=== PATIENT | female | born 1955 | race Caucasian/White ===

== ENCOUNTER 2016-11-22 01:26 | Emergency (ER) | payer MEDICARE ==
[~2016-11-22] VITALS: Ht 160 cm; Wt 102.0 kg
[~2016-11-22 01:26] MED LIST: ACET-141 PO; ALPR1TAB7 PO; AMO500 PO; BEN25 PO; BENA20TA48 PO; BENZ1TAB7 PO; DOCU-159 PO; DULO60CA6 PO; IBUP400T22 PO; KENC1 TOP; METO-448 PO; NAPR-688 PO; NYST15CR28 TOP; OXYC-279 PO; PANT40TA4 PO; PREG50CA PO; PROC10TA10 PO; ROPI1TAB PO; ROPI4TAB4 PO; TIZA4TAB PO; TOPI25CA2 PO; TRAZ50TA18 PO; ZOLP5TAB PO
[2016-11-22 01:35] VITALS: Ht 160 cm; Wt 102.0 kg
[2016-11-22] MEDS ORDERED: ACET1TAB40 PO (04:52)
[2016-11-22] MEDS ORDERED: traMADol 50 MG TAB PO ONE (05:00)
--- NOTE | 2016-11-22 05:00 | ERD ---
ER Documentation Chief Complaint Date/Time DATE: 11/22/16 TIME: 04:57 Chief Complaint toothache, tooth extraction 2 days ago HPI This patient is a 61-year-old female with past medical history of hypertension and dental extraction 2 days ago presenting to the emergency department for dental pain ongoing for the past 2 days. The patient states she got a prescription for 8 Tylenol 3 sincerity use all of them due to her pain. The patient is requesting a few more Tylenol threes to get through to her dental appointment in 1 day. Patient denies fevers, chills, discharge from the extraction site, or other symptoms at this time. ROS All systems reviewed and are negative except as per history of present illness. Medications Home Meds Active Scripts Acetaminophen with Codeine (Acetaminophen-Cod #3 Tablet) 1 Each Tablet, 1 TAB PO Q6H Y for PAIN, #3 TAB Prov:DIMITRY CUBA PA-C 11/22/16 Acetaminophen with Codeine (Acetaminophen-Cod #3 Tablet) 1 Each Tablet, 1 TAB PO Q6H Y for PAIN, #7 TAB Prov:DIMITRY CUBA PA-C 11/22/16 Amoxicillin* (Amoxicillin*) 500 Mg Cap, 500 MG PO TID for 7 Days, CAP Prov:RAJNI BARRIOS DO 07/31/16 Oxycodone HCl/Acetaminophen (Percocet 5-325 mg Tablet) 1 Each Tablet, 1 EACH PO Q6, #10 TAB Prov:RAJNI BARRIOS DO 07/31/16 Naproxen* (Naproxen*) 500 Mg Tablet, 500 MG PO BID Y for PAIN, #20 TAB Prov:RAJNI BARRIOS DO 07/31/16 Zolpidem Tartrate (Ambien Gigi) 5 Mg Tab, 10 MG PO HS Y for INSOMNIA for 60 Days Prov:ANDREA CHAMBERLAIN MD 03/29/15 Trazodone Hcl* (Desyrel*) 50 Mg Tab, 50 MG PO HS Y for SLEEP for 60 Days, TAB Prov:ANDREA CHAMBERLAIN MD 03/29/15 Pantoprazole (Protonix) 40 Mg Tabec, 40 MG PO DAILY@06 for 30 Days Prov:ANDREA CHAMBERLAIN MD 03/29/15 Diphenhydramine Hcl* (Benadryl*) 25 Mg Cap, 25 MG PO HS for 60 Days, CAP Prov:ANDREA CHAMBERLAIN MD 03/29/15 Reported Medications Pregabalin* (Lyrica*) 50 Mg Capsule, 50 MG PO BID, CAP 03/27/15 Duloxetine Hcl* (Cymbalta*) 60 Mg Capsule.dr, 60 MG PO DAILY, CAP 03/27/15 Topiramate* (Topiramate*) 25 Mg Cap.sprink, 25 MG PO BID, CAP 03/27/15 Docusate Sodium* (Docusate Sodium*) 100 Mg Capsule, 100 MG PO BID, CAP 03/27/15 Prochlorperazine* (Prochlorperazine*) 10 Mg Tablet, 10 MG PO Q12 Y for NAUSEA, TAB 03/27/15 Ibuprofen* (Ibuprofen*) 400 Mg Tablet, 400 MG PO Q6H Y for PAIN, TAB 03/27/15 Tizanidine Hcl* (Tizanidine Hcl*) 4 Mg Tablet, 4 MG PO QID, TAB 07/03/14 Alprazolam* (Alprazolam*) 1 Mg Tablet, 1 MG PO BID, TAB 07/03/14 Nystatin* (Nystatin*) 15 Gm Cr, 1 APPLIC TOP BID, TUB 07/03/14 Triamcinolone Acetonide* (Kenalog*) 0.1%-15GM Cr, 1 APPLIC TOP DAILY, EA 07/03/14 Ropinirole Hcl* (Ropinirole Hcl*) 4 Mg Tablet, 4 MG PO QHS, TAB 07/03/14 Ropinirole Hcl* (Ropinirole Hcl*) 1 Mg Tablet, 1 MG PO HS, TAB 07/03/14 Benztropine Mesylate* (Benztropine Mesylate*) 1 Mg Tablet, 1 MG PO QHS, TAB 07/03/14 Pantoprazole* (Pantoprazole*) 40 Mg Tablet.dr, 40 MG PO DAILY, TAB 07/03/14 Metoprolol Tartrate* (Lopressor*) 25 Mg Tab, 25 MG PO BID, TAB 07/03/14 Benazepril Hcl* (Benazepril Hcl*) 20 Mg Tablet, 20 MG PO DAILY, TAB 07/03/14 Acetaminophen* (Acetaminophen*) 500 MG Extra Strength Tablet, 1000 MG PO TID Y for PAIN, TAB 07/03/14 Allergies Allergies: Coded Allergies: hydrocodone (Verified Allergy, Severe, sob, 07/31/16) aspirin (Verified Allergy, Unknown, DELUSIONAL, 07/31/16) PMhx/Soc History of Surgery: Yes (cholecystectomy, tonsillectomy) Anesthesia Reaction: Yes (VOMITING) Hx Neurological Disorder: Yes (PER PT. STROKE ) Hx Respiratory Disorders: No Hx Cardiac Disorders: Yes (mitral valve prolapse) Hx Psychiatric Problems: Yes (BIPOLAR DISORDER, SCHIZOAF VS BIPOLAR II) Hx Miscellaneous Medical Probl: Yes (ANXIETY,DEPRESSION,CHRONIC FATIGUE SYNDROME) Hx Alcohol Use: No Hx Substance Use: No Hx Tobacco Use: No Smoking Status: Never smoker FmHx Noncontributory for chief complaint Physical Exam Vitals Vital Signs Date Time Temp Pulse Resp B/P Pulse Ox O2 Delivery O2 Flow Rate FiO2 11/22/16 01:35 97.8 64 20 120/66 98 Physical Exam Const: The patient is resting comfortably in no acute distress. Head: Atraumatic Eyes: Normal Conjunctiva ENT: Normal External Ears, Nose and Mouth. Mouth: Poor dentition. There is an extracted molar in the left upper side. There is no discharge from the area. Neck: Full range of motion..~ No meningismus. Resp: Clear to auscultation bilaterally Cardio: Regular rate and rhythm, no murmurs Abd: Soft, non tender, non distended. Normal bowel sounds Skin: No petechiae or rashes Back: No midline or flank tenderness Ext: No cyanosis, or edema Neur: Awake and alert Psych: Normal Mood and Affect Procedures/MDM 61-year-old female presents secondary to complaints of dental pain. Patient states she had a dental extraction 2 days ago and is now having pain. On physical examination the patient's vitals are within normal limits. I was able to see the area where the tooth was extracted on the left upper back molar. There are no signs of infection currently. I will give the patient 3 Tylenol No. 3 tablets to bridge her until her follow-up appointment with her dentist. Patient was given p.o. tramadol in the department. Patient agrees to the discharge plan and diagnosis. The patient was advised to return to the department immediately for any new or worsening symptoms. I have low suspicion for dental abscess, septicemia, or other emergent conditions at this time. Departure Diagnosis: Primary Impression: Toothache Condition: Fair Patient Instructions: Dental Pain Referrals: YUMIKO MONTES MD (PCP) Additional Instructions: Follow-up with your dentist as soon as possible Follow-up with your primary care physician within 1 week. Return to the emergency department immediately should you have any new or worsening symptoms, uncontrolled fevers, or other unexplained symptoms. Take all medications as directed. DIMITRY CUBA PA-C Nov 22, 2016 04:59
[2016-11-22 05:08] VITALS: BP 135/81; PULSE 83; RESP 20; TEMP 98
== END 2016-11-22 05:12 | disposition home or self-care (01) ==
LOC: FTE 01:26
DX: G89.18 Other acute postprocedural pain (principal); K08.89 Other specified disorders of teeth and supporting structures; I10 Essential (primary) hypertension
CPT/HCPCS: 99283

== ENCOUNTER 2016-12-07 17:33 | Emergency (ER) | payer MEDICARE ==
[~2016-12-07] VITALS: Wt 90.6 kg
[~2016-12-07 17:33] MED LIST changes: +ACET1TAB40 PO
[2016-12-07] MEDS ORDERED: FAMOTIDINE 20 MG INJ IV STA (17:59)
[2016-12-07] MEDS ORDERED: SOD CHLORIDE 0.9% 1,000 ML IV STA (17:59)
[2016-12-07] MEDS ORDERED: ONDANSETRON 4 MG INJ IV STA ×2 (17:59→20:12)
[2016-12-07 18:32] LABS: ADD SCAN DIFF NO
[2016-12-07 18:36] LABS: BASOPHIL # 0.1 10^3/ul (0.0-0.1); BASOPHILS % 0.5 % (0.0-2.0); EOSINOPHILS # 0.1 10^3/ul (0.0-0.5); EOSINOPHILS % 0.6 % (0.0-7.0); HEMATOCRIT 44.6 % (37.0-47.0); HEMOGLOBIN 14.7 g/dl (12.0-16.0); LYMPHOCYTES # 1.8 10^3/ul (0.8-2.9); LYMPHOCYTES % 16.6 % (15.0-51.0); MEAN CORPUSCULAR HEMOGLOBIN 31.1 pg (29.0-33.0); MEAN CORPUSCULAR VOLUME 94.5 fl (82.0-101.0); MEAN PLATELET VOLUME 11.2 fl (7.4-10.4); MONOCYTES % 9.1 % (0.0-11.0); NEUTROPHIL # 7.9 10^3/ul (1.6-7.5); NEUTROPHILS % 72.8 % (39.0-77.0); PLATELET COUNT 441 10^3/UL (140-415); RED BLOOD COUNT 4.72 10^6/ul (4.20-5.40); WHITE BLOOD COUNT 10.8 10^3/ul (4.8-10.8)
[2016-12-07 18:56] LABS: ALBUMIN 5.1 g/dl (3.3-4.9); POTASSIUM 4.1 mmol/L (3.5-5.1)
[2016-12-07 18:58] LABS: BILIRUBIN,INDIRECT 0.2 mg/dl (0-1.1); BILIRUBIN,TOTAL 0.2 mg/dl (0.2-1.3); CREATININE 0.86 mg/dl (0.44-1.00)
[2016-12-07 18:59] LABS: ALBUMIN/GLOBULIN RATIO 1.21; CALCIUM 9.5 mg/dl (8.4-10.2); TOTAL PROTEIN 9.3 g/dl (6.1-8.1)
--- NOTE | 2016-12-07 19:14 | ERD ---
ER Documentation Chief Complaint Date/Time DATE: 12/07/16 TIME: 19:12 Chief Complaint NAUSEA AND VOMITING AND GEN WEAKNESS SINCE TODAY. NO NEURO DEFICIT. HPI This is a 61-year-old female presents to the emergency room for evaluation of nausea, vomiting and diarrhea for the past 12 hours. The patient denies any fevers associated with this. She denies any abdominal pain but does say she has some abdominal cramping. The patient does have a history of pancreatitis. She denies any alcohol use, states that she had her gallbladder removed. The patient came to the ER today for evaluation of her symptoms. She denies any relieving factors for her symptoms ROS All systems reviewed and are negative except as per history of present illness. Medications Home Meds Active Scripts Acetaminophen with Codeine (Acetaminophen-Cod #3 Tablet) 1 Each Tablet, 1 TAB PO Q6H Y for PAIN, #3 TAB Prov:DIMITRY CUBA PA-C 11/22/16 Acetaminophen with Codeine (Acetaminophen-Cod #3 Tablet) 1 Each Tablet, 1 TAB PO Q6H Y for PAIN, #7 TAB Prov:DIMITRY CUBA PA-C 11/22/16 Amoxicillin* (Amoxicillin*) 500 Mg Cap, 500 MG PO TID for 7 Days, CAP Prov:RAJNI BARRIOS DO 07/31/16 Oxycodone HCl/Acetaminophen (Percocet 5-325 mg Tablet) 1 Each Tablet, 1 EACH PO Q6, #10 TAB Prov:RAJNI BARRIOS DO 07/31/16 Naproxen* (Naproxen*) 500 Mg Tablet, 500 MG PO BID Y for PAIN, #20 TAB Prov:RAJNI BARRIOS DO 07/31/16 Zolpidem Tartrate (Ambien Gigi) 5 Mg Tab, 10 MG PO HS Y for INSOMNIA for 60 Days Prov:ANDREA CHAMBERLAIN MD 03/29/15 Trazodone Hcl* (Desyrel*) 50 Mg Tab, 50 MG PO HS Y for SLEEP for 60 Days, TAB Prov:ANDREA CHAMBERLAIN MD 03/29/15 Pantoprazole (Protonix) 40 Mg Tabec, 40 MG PO DAILY@06 for 30 Days Prov:ANDREA CHAMBERLAIN MD 03/29/15 Diphenhydramine Hcl* (Benadryl*) 25 Mg Cap, 25 MG PO HS for 60 Days, CAP Prov:ANDREA CHAMBERLAIN MD 03/29/15 Reported Medications Pregabalin* (Lyrica*) 50 Mg Capsule, 50 MG PO BID, CAP 03/27/15 Duloxetine Hcl* (Cymbalta*) 60 Mg Capsule.dr, 60 MG PO DAILY, CAP 03/27/15 Topiramate* (Topiramate*) 25 Mg Cap.sprink, 25 MG PO BID, CAP 03/27/15 Docusate Sodium* (Docusate Sodium*) 100 Mg Capsule, 100 MG PO BID, CAP 03/27/15 Prochlorperazine* (Prochlorperazine*) 10 Mg Tablet, 10 MG PO Q12 Y for NAUSEA, TAB 03/27/15 Ibuprofen* (Ibuprofen*) 400 Mg Tablet, 400 MG PO Q6H Y for PAIN, TAB 03/27/15 Tizanidine Hcl* (Tizanidine Hcl*) 4 Mg Tablet, 4 MG PO QID, TAB 07/03/14 Alprazolam* (Alprazolam*) 1 Mg Tablet, 1 MG PO BID, TAB 07/03/14 Nystatin* (Nystatin*) 15 Gm Cr, 1 APPLIC TOP BID, TUB 07/03/14 Triamcinolone Acetonide* (Kenalog*) 0.1%-15GM Cr, 1 APPLIC TOP DAILY, EA 07/03/14 Ropinirole Hcl* (Ropinirole Hcl*) 4 Mg Tablet, 4 MG PO QHS, TAB 07/03/14 Ropinirole Hcl* (Ropinirole Hcl*) 1 Mg Tablet, 1 MG PO HS, TAB 07/03/14 Benztropine Mesylate* (Benztropine Mesylate*) 1 Mg Tablet, 1 MG PO QHS, TAB 07/03/14 Pantoprazole* (Pantoprazole*) 40 Mg Tablet.dr, 40 MG PO DAILY, TAB 07/03/14 Metoprolol Tartrate* (Lopressor*) 25 Mg Tab, 25 MG PO BID, TAB 07/03/14 Benazepril Hcl* (Benazepril Hcl*) 20 Mg Tablet, 20 MG PO DAILY, TAB 07/03/14 Acetaminophen* (Acetaminophen*) 500 MG Extra Strength Tablet, 1000 MG PO TID Y for PAIN, TAB 11/11/14 Allergies Allergies: Coded Allergies: hydrocodone (Verified Allergy, Severe, sob, 07/31/16) aspirin (Verified Allergy, Unknown, DELUSIONAL, 07/31/16) PMhx/Soc History of Surgery: Yes (cholecystectomy, tonsillectomy) Anesthesia Reaction: Yes (VOMITING) Hx Neurological Disorder: Yes (PER PT. STROKE ) Hx Respiratory Disorders: No Hx Cardiac Disorders: Yes (mitral valve prolapse) Hx Psychiatric Problems: Yes (BIPOLAR DISORDER, SCHIZOAF VS BIPOLAR II) Hx Miscellaneous Medical Probl: Yes (ANXIETY,DEPRESSION,CHRONIC FATIGUE SYNDROME) Hx Alcohol Use: No Hx Substance Use: No Hx Tobacco Use: No Smoking Status: Never smoker Physical Exam Vitals Vital Signs Date Time Temp Pulse Resp B/P Pulse Ox O2 Delivery O2 Flow Rate FiO2 12/07/16 17:44 98.0 100 20 137/83 98 Physical Exam Const: No acute distress Head: Atraumatic Eyes: Normal Conjunctiva ENT: Dry mucous membranes, normal External Ears, Nose and Mouth. Neck: Full range of motion..~ No meningismus. Resp: Clear to auscultation bilaterally Cardio: Regular rate and rhythm, no murmurs Abd: Soft, non tender, non distended. Normal bowel sounds Skin: No petechiae or rashes Back: No midline or flank tenderness Ext: No cyanosis, or edema Neur: Awake and alert Psych: Normal Mood and Affect Result Diagram: 12/07/16182212/07/161822 Results 24 hrs Laboratory Tests Test 12/07/16 18:23 White Blood Count 10.810^3/ul Red Blood Count 4.7210^6/ul Hemoglobin 14.7g/dl Hematocrit 44.6% Mean Corpuscular Volume 94.5fl Mean Corpuscular Hemoglobin 31.1pg Mean Corpuscular Hemoglobin Concent 33.0g/dl Red Cell Distribution Width 13.0% Platelet Count 12289^3/UL Mean Platelet Volume 11.2fl Neutrophils % 72.8% Lymphocytes % 16.6% Monocytes % 9.1% Eosinophils % 0.6% Basophils % 0.5% Nucleated Red Blood Cells % 0.0/100WBC Neutrophils # 7.910^3/ul Lymphocytes # 1.810^3/ul Monocytes # 1.010^3/ul Eosinophils # 0.110^3/ul Basophils # 0.110^3/ul Nucleated Red Blood Cells # 0.010^3/ul Sodium Level 143mmol/L Potassium Level 4.1mmol/L Chloride Level 105mmol/L Carbon Dioxide Level 21mmol/L Anion Gap 21 Blood Urea Nitrogen 24mg/dl Creatinine 0.86mg/dl Glucose Level 113mg/dl Calcium Level 9.5mg/dl Total Bilirubin 0.2mg/dl Direct Bilirubin 0.00mg/dl Indirect Bilirubin 0.2mg/dl Aspartate Amino Transf (AST/SGOT) 28IU/L Alanine Aminotransferase (ALT/SGPT) 39IU/L Alkaline Phosphatase 85IU/L Total Protein 9.3g/dl Albumin 5.1g/dl Globulin 4.20g/dl Albumin/Globulin Ratio 1.21 Lipase 115U/L Current Medications Medications (Trade) Dose Ordered Sig/Ellen Route PRN Reason Start Time Stop Time Status Last Admin Dose Admin Sodium Chloride (NS) 1,000 ml @ 1,000 mls/hr Q1H STAT IV 12/07/16 17:59 12/07/16 18:58 DC 12/07/16 18:43 Ondansetron HCl (Zofran Inj) 4 mg ONCE STAT IV 12/07/16 17:59 12/07/16 18:00 DC 12/07/16 18:42 Famotidine (Pepcid Iv) 20 mg ONCE STAT IV 12/07/16 17:59 12/07/16 18:00 DC 12/07/16 18:42 Procedures/MDM This 61-year-old female presents to the ER for evaluation of nausea, vomiting and diarrhea. When I evaluated this patient she did have dry mucous membranes. She does have a history of pancreatitis. Lab work was obtained. This patient 's lipase is within normal limits. She was slightly dehydrated and had prerenal azotemia. She was given 1 L of fluids along with Zofran and Pepcid. Upon my reevaluation she states she is feeling better and she is tolerating p.o. challenge. She will be discharged home at this time with instructions to follow-up with her primary care physician. Her symptoms are likely viral in nature. Departure Diagnosis: Primary Impression: Nausea and vomiting Additional Impressions: Mild dehydration Prerenal azotemia Condition: Stable ELBA HENRIQUEZ DO Dec 07, 2016 19:14
[2016-12-07] MEDS ORDERED: ACETAMINOPHEN/CODEINE #3 TAB PO ONE (20:00)
[2016-12-07 20:21] VITALS: BP 96/59; PULSE 72; RESP 16; TEMP 97.9
== END 2016-12-07 20:21 | disposition home or self-care (01) ==
LOC: E/R 17:33
DX: R11.2 Nausea with vomiting, unspecified (principal); E86.0 Dehydration; R39.2 Extrarenal uremia
CPT/HCPCS: 36415; 80053; 83690; 85025; 96374; 96375; 96376; 99284; J2405; J7030

== ENCOUNTER 2017-08-18 21:57 | Emergency (ER) | payer MEDICARE ==
[~2017-08-18] VITALS: Ht 170.2 cm; Wt 100.0 kg
[~2017-08-18 21:57] MED LIST changes: -AMO500 PO; +AMOX500C2 PO; -KENC1 TOP; +TRIA15CR55 TOP
[2017-08-18 21:58] VITALS: Ht 170.2 cm; Wt 100.0 kg
[2017-08-19 00:34] LABS: URINE BLOOD (Dip) POC 2+ (NEGATIVE)
[2017-08-19] MEDS ORDERED: METOCLOPRAMIDE 10 MG INJ IV STA (00:48)
[2017-08-19] MEDS ORDERED: DIPHENHYDRAMINE 50 MG INJ IV STA (00:48)
[2017-08-19] MEDS ORDERED: SOD CHLORIDE 0.9% 1,000 ML IV STA (00:48)
--- NOTE | 2017-08-19 01:36 | ERD ---
ER Documentation Chief Complaint Chief Complaint body aches, vomit x1, URI/flu symptoms x 1 day, no fevers. HPI This is a 62-year-old female history of migraine headaches who presents to the emergency room with multiple complaints. Her main complaint is headache it is gradual onset it is bandlike and similar to headaches in the past. She describes recent social stressors with multiple deaths within her family and close friends. She is also describing URI and flulike symptoms for approximately 1 day. She describes mild nausea with one episode of nonbloody nonbilious emesis. Her main complaint is her headache. She denies any fevers. She denies any chest pain or shortness of breath. No suicidal or homicidal ideation. ROS All systems reviewed and are negative except as per history of present illness. PMhx/Soc History of Surgery: Yes (GB, Leg surgery, Tonsills) Hx Miscellaneous Medical Probl: Yes (Fibromyalgia) Hx Alcohol Use: No Hx Substance Use: No Hx Tobacco Use: No Smoking Status: Never smoker FmHx Family History: No diabetes Physical Exam Vitals Vital Signs Date Time Temp Pulse Resp B/P Pulse Ox O2 Delivery O2 Flow Rate FiO2 08/19/17 01:23 98.2 74 18 123/57 99 Room Air 08/18/17 21:58 98.9 77 20 202/89 96 Physical Exam General: Well developed, well nourished, no acute distress Head: Normocephalic, atraumatic. Eyes: Pupils equally reactive, EOM intact ENT: Moist mucous membranes Neck: Supple, no lymphadenopathy Respiratory: Lungs clear bilaterally, no distress Cardiovascular: RRR, no murmurs, rubs, or gallops Abdominal: Soft, non-tender, non-distended, no peritoneal signs : Deferred MSK: No edema, no unilateral swelling, 5/5 strength Neurologic: Alert and oriented, moving all extremities, normal speech, no focal weakness, no cerebellar signs, no meningismus Skin: No rash Psych: Normal mood Results 24 hrs Laboratory Tests Test 08/19/17 00:34 Bedside Urine pH (LAB) 6.0 Bedside Urine Protein (LAB) 3+ Bedside Urine Glucose (UA) Negative Bedside Urine Ketones (LAB) 1+ Bedside Urine Blood 2+ Bedside Urine Nitrite (LAB) Negative Bedside Urine Leukocyte Esterase (L Negative Current Medications Medications (Trade) Dose Ordered Sig/Ellen Route PRN Reason Start Time Stop Time Status Last Admin Dose Admin Sodium Chloride (NS) 1,000 ml @ 1,000 mls/hr Q1H STAT IV 08/19/17 00:48 08/19/17 01:47 08/19/17 00:59 Metoclopramide HCl (Reglan) 10 mg ONCE STAT IV 08/19/17 00:48 08/19/17 00:50 DC 08/19/17 00:59 Diphenhydramine HCl (Benadryl) 25 mg ONCE STAT IV 08/19/17 00:48 08/19/17 00:50 DC 08/19/17 00:59 Procedures/MDM The patient's headache is unlikely related to serious etiology. The patient does not exhibit any clinical signs or symptoms, and has no risk factors to suggest headache etiology such as subarachnoid hemorrhage, acute vertebral or carotid dissection, intracranial mass, epidural, subdural hematoma, dural venous sinus thrombosis, giant cell arteritis, or pseudotumor cerebri. The patient has elevated blood pressure but it trended down without intervention. No evidence of endorgan dysfunction. I believe the main etiology of the patient's symptoms is recent social stressors. The patient agrees. The patient was given IV fluids, Reglan, Benadryl with complete resolution of symptoms. The patient's blood pressure down trended appropriately. She does not require any laboratory testing or diagnostic imaging. She is not suicidal and has good social resources. I believe the patient can be safely discharged with outpatient follow-up. Departure Diagnosis: Primary Impression: Headache Headache type: unspecified Headache chronicity pattern: acute headache Intractability: not intractable Qualified Code: R51 - Acute nonintractable headache, unspecified headache type Additional Impressions: Hypertensive urgency Grief reaction Condition: Stable Patient Instructions: Self-Care for Headaches Additional Instructions: Call your primary care doctor TOMORROW for an appointment during the next 1 WEEK.Tell the racing secretary that you were referred from this facility.See the doctor sooner or return here if your condition worsens before your appointment time. BONITA VILLATORO MD Aug 19, 2017 01:35
[2017-08-19 02:58] VITALS: BP 105/65; PULSE 68; RESP 20; TEMP 98.1
[2017-08-19] MEDS ORDERED: QUET25TA26 PO (03:28)
[2017-08-19] MEDS ORDERED: TIZA2TAB PO (03:28)
== END 2017-08-19 02:58 | disposition home or self-care (01) ==
LOC: MERGE 21:57 → E/R 21:57
DX: I16.0 Hypertensive urgency (principal); I10 Essential (primary) hypertension; F43.20 Adjustment disorder, unspecified; R40.2142 Coma scale, eyes open, spontaneous, at arrival to emergency department; R40.2252 Coma scale, best verbal response, oriented, at arrival to emergency department; R40.2362 Coma scale, best motor response, obeys commands, at arrival to emergency department
CPT/HCPCS: 81003; 96374; 96375; 99284; J1200; J2765; J7030